=== PATIENT | male | born 1985 | race Two or more races ===

== ENCOUNTER 2016-12-01 11:46 | Emergency (ER) | payer MEDICAID, OTHER ==
[~2016-12-01] VITALS: Ht 177.8 cm; Wt 104.3 kg
[2016-12-01] MEDS ORDERED: METFORMIN HCL1000 M1 ORAL (12:13)
[2016-12-01] MEDS ORDERED: GLIPIZIDE5 MG ORAL (12:13)
[2016-12-01] MEDS ORDERED: Cyclobenzaprine 10mg Tab ORAL ONE (12:30)
[2016-12-01] MEDS ORDERED: Ketorolac 30mg Inj IM ONE (12:30)
--- NOTE | 2016-12-01 12:30 | Emergency Room Report ---
History of Present Illness General Chief Complaint: Lower Back Pain or Injury Source: Patient Present Illness HPI The patient is a 31-year-old male presenting for lower back pain which began after lifting weights a days prior. The patient states that she awoke the next morning with pain. Pain is described as an 8/10 dull ache and is worse with movement such as bending over or twisting. The patient denies any radiating pain and denies numbness or tingling. The patient denies prior back injury. The patient has not tried any medications. Pt denies any other symptoms. Allergies: Coded Allergies: No Known Allergies (Unverified , 12/01/16) Patient History Past Medical History: see triage record Pertinent Family History: none Reviewed Nursing Documentation: PMH: Agreed, PSxH: Agreed Nursing Documentation-PMH Past Medical History: No History, Except For Hx Diabetes: Yes Review of Systems All Other Systems: negative except mentioned in HPI Physical Exam Vital Signs Date Time Temp Pulse Resp B/P Pulse Ox O2 Delivery O2 Flow Rate FiO2 12/01/16 12:09 97.3 97 16 117/79 98 Room Air Sp02 EP Interpretation: reviewed, normal General Appearance: no apparent distress, alert, GCS 15, non-toxic Head: normocephalic, atraumatic Eyes: bilateral eye PERRL, bilateral eye normal inspection ENT: hearing grossly normal, normal pharynx, no angioedema, normal voice Musculoskeletal: normal inspection, digits/nails normal, gait/station normal, normal range of motion, no calf tenderness, tender - TTP over bilat paraspinous muscles lumbar region Neurologic: alert, oriented x3, responsive, motor strength/tone normal, sensory intact, normal gait, speech normal Psychiatric: judgement/insight normal, memory normal, mood/affect normal, no suicidal/homicidal ideation Reflexes: 3+ bicep (R), 3+ bicep (L), 3+ tricep (R), 3+ tricep (L), 3+ knee (R) , 3+ knee (L) Skin: normal color, no rash, warm/dry, well hydrated Lymphatic: no adenopathy Medical Decision Making PA Attestation Dr. Sanchez is my supervising physician. Patient management was discussed with my supervising physician Diagnostic Impression: Primary Impression: Muscle strain ER Course The patient is a 31-year-old male presenting for lower back pain which began after lifting weights a days prior. Ddx considered include but not limited to lumbar strain, degenerative disease, epidural abscess, cauda equina, chronic pain, narcotic dependency. PE: Vitals WNL. NAD. TTP over bilat paraspinous muscles. No midline TTP. SILT. Full AROM. Normal gait. Pt given Toradol and flexeril for pain with good relief. Pt will be DC'ed home with prescription for motrin and flexeril Last Vital Signs Date Time Temp Pulse Resp B/P Pulse Ox O2 Delivery O2 Flow Rate FiO2 12/01/16 12:09 97.3 97 16 117/79 98 Room Air Status: improved Disposition: HOME, SELF-CARE Condition: Improved Scripts Cyclobenzaprine Hcl* (FLEXERIL*) 10 Mg Tablet 10 MG ORAL THREE TIMES A DAY, #15 TAB Prov: DWIGHT ROLDAN 12/01/16 Ibuprofen* (MOTRIN*) 600 Mg Tablet 600 MG ORAL Q8H Y for For Pain, #30 TAB 0 Refills Prov: DWIGHT ROLDAN 12/01/16 DWIGHT ROLDAN Dec 01, 2016 12:30
[2016-12-01] MEDS ORDERED: IBUPROFEN600 MG ORAL (12:52)
[2016-12-01] MEDS ORDERED: CYCLOBENZAPRINE10 MG ORAL (12:52)
[2016-12-01 13:12] VITALS: BP 131/81
== END 2016-12-01 13:12 | disposition home or self-care (01) ==
LOC: EMR 12:55
DX: S39.012A Strain of muscle, fascia and tendon of lower back, initial encounter (principal); X50.0XXA Overexertion from strenuous movement or load, initial encounter; Y93.9 Activity, unspecified; Y92.9 Unspecified place or not applicable; E11.9 Type 2 diabetes mellitus without complications
CPT/HCPCS: 96372; 99284; J1885